=== PATIENT | male | born 1980 | race Caucasian/White ===

== ENCOUNTER 2018-06-09 19:52 | Emergency (ER) | payer BC, OTHER ==
[~2018-06-09] VITALS: Ht 175.3 cm; Wt 135.6 kg
[2018-06-09] MEDS ORDERED: diphenhdrAMINE HCL 50 MG/1 ML VL ONE ×2 (20:00→20:15)
[2018-06-09] MEDS ORDERED: HALOPERIDOL LACTATE 5 MG/ML INJ VIAL ONE ×2 (20:01→20:15)
[2018-06-09] MEDS ORDERED: LORazepam 2MG/ML-1ML VIAL ONE (20:15)
[2018-06-09] MEDS ORDERED: LORazepam 2MG/ML-1ML VIAL IV ONE ×2 (20:30→23:45)
[2018-06-09] MEDS ORDERED: diphenhdrAMINE HCL 50 MG/1 ML VL IV ONE ×2 (20:30→23:45)
[2018-06-09] MEDS ORDERED: HALOPERIDOL LACTATE 5 MG/ML INJ VIAL IM ONE ×2 (20:30→23:45)
[2018-06-09 20:49] LABS: Basophils # (auto) 0.1 uL; Basophils % (auto) 0.5 % (0.0-2.0); Eosinophils # (auto) 0.2 uL; Hematocrit 41.5 % (41.0-53.0); Hemoglobin 13.9 g/dL (13.5-17.5); Lymphocytes # (auto) 1.8 uL; Lymphocytes % (auto) 15.7 % (10.0-50.0); Mean Corpuscular Hemoglobin 30.6 pg (28.0-32.0); Mean Corpuscular Hgb Conc. 33.6 g/dL (32.0-36.0); Mean Corpuscular Volume 91.3 fL (80.0-100.0); Monocytes # (auto) 0.7 uL; Monocytes % (auto) 6.3 % (0.0-12.0); Neutrophils # (auto) 8.8 uL; Neutrophils % (auto) 75.5 % (37.0-80.0); Platelet Count (auto) 259 10^3/uL (140-450); Red Blood Cells 4.54 10^6/uL (4.5-5.90); Red Cell Distribution Width 13.2 % (11.8-14.3); White Blood Cell 11.7 10^3/uL (4.4-10.8)
[2018-06-09 20:57] LABS: Urine Bacteria NONE SEEN /hpf (None Seen); Urine Blood Negative /uL (Negative); Urine Specific Gravity 1.008 (1.001-1.035); Urine WBC <1 /hpf (0 - 3)
[2018-06-09 21:05] LABS: Acetaminophen < 2.0 ug/mL (10-30); Albumin 3.3 g/dL (3.4-5.0); Anion Gap 5 (5-15); BUN/Creatinine Ratio 11.9; Blood Alcohol < 3.0 mg/dL (0-5); Blood Urea Nitrogen 10 mg/dL (7-18); Calcium 8.1 mg/dL (8.5-10.1); Carbon Dioxide 27 mmol/L (21-32); Chloride 106 mmol/L (98-107); GFR African American > 60 mL/min; GFR Non-African American > 60 mL/min; Glucose 90 mg/dL (74-106); Magnesium 1.8 mg/dL (1.6-2.6); Potassium 3.6 mmol/L (3.5-5.1); Salicylate 6.6 mg/dL (2.8-20.0); Sodium 138 mmol/L (136-145)
[2018-06-09 21:08] LABS: Alanine Aminotransferase 25 U/L (16-61); Alkaline Phosphatase 69 U/L (45-117); Aspartate Aminotransferase 22 U/L (15-37); Bilirubin, Total 0.3 mg/dL (0.2-1.0); Total Protein 7.1 g/dL (6.4-8.2)
[2018-06-09 21:18] LABS: Alcohol, Urine < 3.0 mg/dL (0-5); Amphetamine Screen, Urine NEGATIVE (NEGATIVE); Barbiturate Scree,Urine NEGATIVE (NEGATIVE); Benzodiazephine Screen, Urine NEGATIVE (NEGATIVE); Cannabinoid Screen, Urine NEGATIVE (NEGATIVE); Cocaine Screen, Urine NEGATIVE (NEGATIVE); Opiate Scree,Urine NEGATIVE (NEGATIVE); Phencyclidine Screen, Urine NEGATIVE (NEGATIVE)
[2018-06-10] MEDS ORDERED: cloNIDine HCL 0.1 MG TAB ONE (02:16)
[2018-06-10] MEDS ORDERED: cloNIDine HCL 0.1 MG TAB PO ONE (02:30)
[2018-06-10 06:16] VITALS: BP 149/89
== END 2018-06-10 09:45 | disposition left against medical advice (07) ==
LOC: EDBD 19:52 → ER 20:01
DX: F29 Unspecified psychosis not due to a substance or known physiological condition (principal); R45.851 Suicidal ideations; F17.210 Nicotine dependence, cigarettes, uncomplicated; F12.10 Cannabis abuse, uncomplicated; F14.10 Cocaine abuse, uncomplicated; Z53.29 Procedure and treatment not carried out because of patient's decision for other reasons
CPT/HCPCS: 36415; 80053; 80307; 80320; 80329; 81001; 83735; 85025; 96372; 96374; 96375; 96376; 99284; J1200; J1630; J2060; 93005